=== PATIENT | female | born 1990 | race Caucasian/White ===

== ENCOUNTER 2023-02-18 06:41 | Emergency (ER) | payer SELFPAY ==
--- NOTE | ~2023-02-18 | CT_ITS ---
EXAMINATION: CT SOFT TISSUE NECK WITH CONTRAST CLINICAL INFORMATION: Enlargement of the right tonsil. Question peritonsillar abscess. COMPARISON: No relevant prior imaging. TECHNIQUE: Following the intravenous administration of 100 mL of Omnipaque 350 intravenous contrast, helical imaging was performed in the axial plane with generation of coronal and sagittal reformatted images. This CT examination was performed using dose optimization techniques as appropriate, variously including the following: *Automated exposure control *Adjustment of mA and/or kV according to patient size (this includes techniques or standardized protocols for targeted exams where dose is matched to indication/reason for exam; i.e. extremities or head) *Use of iterative reconstruction technique DLP: 724 mGy-cm FINDINGS: There is a peripherally enhancing 2.3 cm fluid collection within the right nasopharyngeal mucosal space consistent with a peritonsillar abscess best visualized on axial image 30 of 135 series 2. There is borderline symmetric enlargement of multiple cervical lymph nodes that are likely reactive in the setting of an abscess. No mediastinal or axillary adenopathy is visualized within the [id number] of this examination. Director Broadcast spaces are symmetric. The parotid and submandibular glands are normal. The tongue base and epiglottis are normal. Preepiglottic fat is preserved. Glottic and subglottic airways are widely patent. The thyroid gland is normal and the remainder of the visualized visceral soft tissues are normal. Lung apices are clear. The aortic arch apex is normal. Cervical carotid or vertebral arteries are patent. Internal jugular veins fill symmetrically. There is no acute osseous finding. No worrisome lytic or blastic osseous lesion. The skull base is intact. No mastoid or middle ear effusion. No active paranasal sinus disease. Limited visualization of the intracranial anatomy reveals no abnormal finding. CT/CT soft tissue neck w IV con IMPRESSION: There is a 2.3 cm right peritonsillar abscess. There are multiple reactive cervical lymph nodes, none of which demonstrate evidence of central suppuration. No evidence of septic thrombophlebitis.
[2023-02-18 07:15] VITALS: BP 116/81; PULSE 110; RESP 18; TEMP 36.9; O2SAT 97; BMI 42.9
[2023-02-18] MEDS: dexAMETHasone sod phosphate 10 MG/ML VIAL IVPUSH (08:11)
[2023-02-18] MEDS: 0.9 % Sodium Chloride 1,000 ML 999 ML IV (08:11)
[2023-02-18 08:12] LABS: MANUAL DIFF FLAG NO
[2023-02-18] MEDS: Ketorolac Tromethamine 15 MG/ML VIAL IVPUSH (08:13)
--- NOTE | 2023-02-18 08:13 | ED.GENADULT ---
HPI - General Adult General Chief complaint: General Medical Stated complaint: strep throat meds not working after urgent care Time Seen by Provider: 02/18/23 07:09 Source: patient Mode of arrival: ambulatory Limitations: no limitations History of Present Illness HPI narrative: 32-year-old female with no major medical problems presents with sore throat. Symptoms have been on and off for at least a month to month and a half. Most recently over the last 5-6 days she has had increasing throat pain. The pain is moderate to severe. Worse with swallowing. Feels like last. She had no fevers or chills. She has had some mild nausea but no vomiting. She has denies any other respiratory symptoms. Patient was treated previously with penicillin, steroids for possible strep throat. Symptoms seemed of gotten somewhat better but over the last few days have gotten significantly worse. Patient is also noted tonsillar enlargement. Related Data Previous Rx's Medication Instructions Recorded amoxicillin 875 mg-potassium 1 tab PO Q12H #20 tabs 02/18/23 clavulanate 125 mg tablet meloxicam 15 mg tablet 15 mg PO DAILY #20 tabs 02/18/23 Allergies Allergy/AdvReac Type Severity Reaction Status Date / Time No Known Allergies Allergy Verified 02/18/23 07:18 [No Known Allergies*] Review of Systems Review of Systems: CONSTITUTIONAL: Denies weight loss, fever and chills. HEENT: Denies changes in vision and hearing. RESPIRATORY: Denies SOB and cough. CV: Denies palpitations no CP. GI: Denies abdominal pain, nausea, vomiting and diarrhea. : Denies dysuria and urinary frequency. MSK: Denies myalgia and joint pain. SKIN: Denies rash and pruritus. NEUROLOGICAL: Denies headache and syncope. PSYCHIATRIC: Denies recent changes in mood. Denies anxiety and depression. All other ROS are negative unless in HPI COUNTS INCLUDE 234 BEDS AT THE [facility] Social History Social History Alcohol intake: current Alcohol intake frequency: holidays/special occasions only Smoked in Last 30 Days: Yes Use of substances other than those prescribed or required for medical reasons: Yes Substance Use Type: Marijuana Advance Directives: No Physical Exam ED Vital Signs: Vital Signs - 24 hr 02/18/23 07:15 Temperature 98.5 F Pulse Rate 110 H Respiratory Rate 18 Blood Pressure 116/81 Pulse Oximetry 97 Oxygen Delivery Method Room Air BMI result Body Mass Index 42.9 GEN: Well developed, no acute distress, alert, oriented HEENT: Normocephalic, atraumatic, normal external ears, nose appears normal, bilateral tonsillar enlargement, right greater than left with uvular deviation, no erythema or exudates Eyes: Normal to appearance Neck: Supple, no lymphadenopathy Respiratory: Talks in complete sentences, no respiratory distress, no wheezing or stridor Extremities: No clubbing cyanosis or edema Neurologic: No focal neurologic deficits, cranial nerves 2-12 intact, gait normal Skin: No rash Course Course Course Narrative: 32-year-old female with a peritonsillar abscess. Incision and drainage was performed in the emergency department. She tolerated the procedure well. Approximately 1.5 mL of purulent material was drained from the abscess. There are no immediate adverse reactions or complications. Bleeding is controlled. She received a dose Unasyn in the emergency department. She reduce the receive dexamethasone as well. Patient will continue with Augmentin and meloxicam as an outpatient. Patient will be referred to ENT. Patient reports having had at least 3-4 episodes of pharyngitis within the last 12 months. Additionally, she reports snoring with possible apneic episodes. With consult kissing tonsils, frequent infections, patient may be an appropriate candidate for tonsillectomy. Medications Administered Discontinued Medications Generic Name Dose Route Start Last Admin Trade Name Freq PRN Reason Stop Dose Admin Dexamethasone Sodium Phosphate 10 mg 02/18/23 07:48 02/18/23 08:11 Dexamethasone Sod Phosphate 10 Mg/Ml Vial IVPUSH 02/18/23 07:49 10 mg ONCE ONE Administration Sodium Chloride 1,000 mls @ 999 mls/hr 02/18/23 08:00 02/18/23 09:50 Ns IV 02/18/23 09:00 Infused .Q1H1M MERYL Infusion Iohexol 60 ml 02/18/23 08:45 02/18/23 08:46 Iohexol 350 Mg/Ml 100 Ml Infus..Btl IV 02/18/23 08:46 60 ml ONCE ONE Administration Ketorolac Tromethamine 15 mg 02/18/23 07:48 02/18/23 08:13 Ketorolac Tromethamine 15 Mg/Ml Vial IVPUSH 02/18/23 07:49 15 mg ONCE ONE Administration Lorazepam 1 mg 02/18/23 09:39 02/18/23 09:48 Lorazepam 2 Mg/Ml Vial IVPUSH 02/18/23 09:40 1 mg ONCE ONE Administration Procedures Abscess I/D Site: other (Peritonsillar) Side (if applicable): right Sedation/analgesia: other (Ativan 1 mg) Local Anesthetic: lidocaine 1% Amount of anesthesia used (mL): 2 Technique: needle aspiration Amount of fluid expressed (mL): 1.5 Sent for culture/gram staining?: No Irrigation: No Packing used?: none Medical Decision Making Medical Decision Making [facility] Narrative: Patient presents with sore throat. Differential diagnosis includes strep throat, viral pharyngitis, other bacterial pharyngitis, peritonsillar abscess, kissing tonsils, viral infection. Plan will be to obtain a CT scan of the neck to rule out peritonsillar abscess. If this is the case, she will likely need this to be drained either by myself or by ENT. Would consider antibiotic treatment. However in the meantime, will treat with dexamethasone and Toradol. Patient may require transfer to higher level of care where ENT is available. Differential Diagnosis Differential Diagnoses: The differential diagnosis associated with the presentation includes Peritonsillar abscess Admission/Observation Consideration of admission/observation: Escalation of care including admission/observation considered Lab Data [facility] Lab Attestation statement: I reviewed the patient's lab results. 02/18/23 08:07 02/18/23 08:07 Labs: Lab Results 02/18/23 02/18/23 02/18/23 Range/Units 08:07 08:07 08:07 WBC 16.1 H (4.8-10.8) X10*3/uL RBC 5.07 (4.20-5.50) X10*6/uL Hgb 14.4 (12.0-16.0) g/dl Hct 44.3 (37.0-47.0) % MCV 87.4 (80.0-98.0) fL MCH 28.4 (27.0-33.0) pg MCHC 32.5 (31.0-35.0) g/dl RDW 13.3 (11.0-16.0) % Plt Count 353 (160-400) X10*3/uL MPV 10.4 (9.4-12.3) fL Immature Gran % (Auto) 0.4 (0.0-0.4) % Neut % (Auto) 72.0 (45-73) % Lymph % (Auto) 20.7 (20-40) % Fleming % (Auto) 6.2 (2-11) % Eos % (Auto) 0.5 (0-4) % Baso % (Auto) 0.2 (0-2) % Lymph # (Auto) 3.3 (1.2-4.9) X10*3/uL Fleming # (Auto) 1.0 (0.1-1.2) X10*3/uL Eos # (Auto) 0.1 (0.0-0.4) X10*3/uL Baso # (Auto) 0.0 (0.0-0.2) X10*3/uL Abs Immat Gran (auto) 0.07 H (0.00-0.03) X10*3/uL Absolute Neuts (auto) 11.6 H (2.0-8.3) x10*3/uL Absolute Nucleated RBC 0.000 (0.0-0.012) X10*3/uL Nucleated RBC % (auto) 0.0 (0.0-0.2) /100WBC Sodium 141 (135-145) mmol/L Potassium 3.7 (3.3-5.1) mmol/L Chloride 105 (96-108) mmol/L Carbon Dioxide 26 (22-29) mmol/L Anion Gap 14 (12-20) BUN 13 (9-16) mg/dL Creatinine 0.82 (0.5-1.4) mg/dL Estim Creat Clear Calc 123.8 Estimated GFR > 60 Random Glucose 94 (60-115) mg/dL Calcium 9.9 (8.4-10.2) mg/dL S. pyogenes GrpA SONIA Negative (Negative) Independent Interpretation I performed an independent interpretation of an: CT Scan Radiology Impression Discussion of test interpretation with radiology: I have reviewed the radiologist's reading. Radiologist Impression: CT/CT soft tissue neck w IV con IMPRESSION: There is a 2.3 cm right peritonsillar abscess. There are multiple reactive cervical lymph nodes, none of which demonstrate evidence of central suppuration. No evidence of septic thrombophlebitis. ? Dictated By: Denzel Sloan MD Signed By: <Electronically signed by Denzel Sloan MD in OV> 02/18/23 0904 Prescription Management I considered prescription management with: Pain Medication and Antibiotic Discharge Plan Discharge Clinical Impression: Tonsillar enlargement, Abscess, peritonsillar Patient Disposition: Home, Self-Care Instructions: Tonsillitis (ED), Tonsillectomy (DC), Peritonsillar Abscess (ED), Abscess Incision and Drainage (DC) Prescriptions: New amoxicillin-pot clavulanate 875-125 mg tablet 1 tab PO Q12H Qty: 20 0RF meloxicam 15 mg tablet 15 mg PO DAILY Qty: 20 0RF Referrals: Suhail Leung [Physician] - 2 days
[2023-02-18 08:26] LABS: Anion Gap 14 (12-20); Blood Urea Nitrogen 13 mg/dL (9-16); Calcium 9.9 mg/dL (8.4-10.2); Carbon Dioxide 26 mmol/L (22-29); Chloride 105 mmol/L (96-108); Creatinine Clr Calc Pharmacy 123.8; Estimated Glomerular Filt Rate > 60; Glucose Random 94 mg/dL (60-115); IDNOW Serial# 08D9AD1C; Potassium 3.7 mmol/L (3.3-5.1); Sodium 141 mmol/L (135-145); Strep A Nucleic Acid Negative (Negative)
[2023-02-18 08:27] LABS: Basophils Percent Auto 0.2 % (0-2); Eosinophils Absolute Auto 0.1 X10*3/uL (0.0-0.4); Eosinophils Percent Auto 0.5 % (0-4); Hematocrit 44.3 % (37.0-47.0); Hemoglobin 14.4 g/dl (12.0-16.0); Imm Gran Abs Auto 0.07 X10*3/uL (0.00-0.03); Imm Gran Pct Auto 0.4 % (0.0-0.4); Lymphocytes Absolute Auto 3.3 X10*3/uL (1.2-4.9); Lymphocytes Percent Auto 20.7 % (20-40); Mean Corpuscular HGB Conc 32.5 g/dl (31.0-35.0); Mean Corpuscular Hemoglobin 28.4 pg (27.0-33.0); Mean Corpuscular Volume 87.4 fL (80.0-98.0); Mean Platelet Volume 10.4 fL (9.4-12.3); Monocytes Percent Auto 6.2 % (2-11); Neutrophils Absolute Auto 11.6 x10*3/uL (2.0-8.3); Platelet Count 353 X10*3/uL (160-400); Red Blood Count 5.07 X10*6/uL (4.20-5.50); Red Cell Distribution Width 13.3 % (11.0-16.0); White Blood Count 16.1 X10*3/uL (4.8-10.8)
--- NOTE | 2023-02-18 08:35 | PC.NURSE ---
swollen tonsils and sore throat, managing secretions and able to swallow some food but mainly just drinking fluids, medicated as orfdered, skin wpd
[2023-02-18] MEDS: iohexoL 350 MG/ML 100 ML INFUS..BTL 60 ML IV (08:46)
--- NOTE | 2023-02-18 09:10 | PC.NURSE ---
pt pain reduced to 5, speaking in full sentences, managing secretions, IV infusing, will ctm
[2023-02-18] MEDS: LORazepam 2 MG/ML VIAL 1 MG IVPUSH (09:48)
[2023-02-18] MEDS: Ampicillin Sodium/Sulbactam Na 3 GM in 0.9 % Sodium Chloride 100 ML IV (10:34)
== END 2023-02-18 11:10 | disposition home or self-care (01) ==
PROVIDERS: Emergency Provider Emergency Medicine
DX: J36 Peritonsillar abscess (principal); J35.1 Hypertrophy of tonsils; F12.90 Cannabis use, unspecified, uncomplicated
CPT/HCPCS: 36415; 42700; 70491; 80048; 85025; 87651; 96361; 96365; 96375; 99284; J0295; J1100; J1885; J2060; Q9967

== ENCOUNTER 2025-04-12 09:29 | Emergency (ER) | payer OTHER, SELFPAY ==
--- NOTE | ~2025-04-12 | US_ITS ---
EXAMINATION: US FIRST TRIMESTER OB HISTORY: +HCG >15,000 R/O ectopic TECHNIQUE: Endovaginal scanning was performed. FINDINGS: There is a single, live intrauterine . AUA = 6 weeks 5 days CHELSIE(AUA) = 12/01/2025 LMP = unknown CRL = 0.75 cm Yolk Sac: seen FHR = 133 bpm Right ovary: The right ovary measures 2.7 x 1.4 x 1.9 cm and is unremarkable. Left ovary: The left ovary measures 3.3 x 2.1 x 2.5 cm and is unremarkable. Cul-de-sac: No free fluid US/US OB <= 14 weeks fetus IMPRESSION: Single, live intrauterine of estimated gestational age 6 weeks, 5 days. Electronically signed by: Denzel Bonilla MD 04/12/2025 01:59 PM EDT
--- NOTE | 2025-04-12 09:31 | ECG_ITS ---
Test Reason : IRREG HEART BEAT Blood Pressure : */* mmHG Vent. Rate : 96 BPM Atrial Rate : 96 BPM P-R Int : 132 ms QRS Dur : 58 ms QT Int : 328 ms P-R-T Axes : 39 11 27 degrees QTcB Int : 414 ms Normal sinus rhythm with sinus arrhythmia Cannot rule out Anterior infarct , age undetermined ; could also be from body habitus and lead placement Abnormal ECG No previous ECGs available Referred By: Generic ED Physician Electronically Signed By: LEONCIO HARRIS
[2025-04-12 09:42] VITALS: BP 118/72; PULSE 103; RESP 22; TEMP 36.9; O2SAT 97; BMI 40.1
--- NOTE | 2025-04-12 09:42 | ED.GENADULT ---
HPI - General Adult General Chief complaint: Arrhythmia/Palpitations Stated complaint: irregular heart beat , sob, light headed Time Seen by Provider: 04/12/25 09:40 Source: patient, RN notes reviewed and old records reviewed Mode of arrival: ambulatory Limitations: no limitations History of Present Illness ED Provider: ALEXA Roa HPI narrative: 34-year-old female with medical history of anxiety presents to the ED due to 3 days of heart palpitations, light headedness, and chest pain. Patient states these episodes are usually intermittent and last for approximately 1 day before resolving. Patient states this episode has been constant since Thursday which worried her. She states chest pain is more like a heaviness in the center of her chest that does not radiate anywhere. Patient reports showering this morning and feeling very SOB during her shower which is untypical for her. Additionally, she states she has been experiencing intermittent nausea without vomiting, and is nauseous upon arrival to ED. Patient states she used to be on metoprolol for fast heart beat but cannot remember specifically why this medication was prescribed to her, she has been off this medication for approximately 10 years and has not been seen by primary care doctor during this time. Related Data Previous Rx's ?Medication ?Instructions ?Recorded amoxicillin 875 mg-potassium 1 tab PO Q12H #20 tabs 02/18/23 clavulanate 125 mg tablet meloxicam 15 mg tablet 15 mg PO DAILY #20 tabs 02/18/23 Allergies Allergy/AdvReac Type Severity Reaction Status Date / Time No Known Allergies (No Known Allergy Verified 04/12/25 09:42 Allergies*) Review of Systems Review of Systems: CONST: Negative for fever, body aches and chills. HENT: Negative for neck pain/stiffness, headache, congestion, sore throat, swelling. EYES: Negative for discharge/pain or vision changes. RESP: Negative for cough/hemoptysis and shortness of breath. CV: Negative difficulty breathing. POS SOB, palpitations ABD: Negative pain, nausea, vomiting. : Negative increase frequency, dysuria, blood in urine or stool. MUSC: Negative for muscle aches, edema. SKIN: Negative rash, lesions/sores. NEURO: Negative headache, dizziness, weakness. [facility] Past Medical History Attestation statement: The following information was validated with the patient. Source: old records reviewed and nursing notes reviewed Social History Social History Alcohol intake: current Alcohol intake frequency: holidays/special occasions only Substance Use Type: Marijuana Advance Directives: No Advance Directives Information Provided: No Physical Exam ED Vital Signs: Vital Signs - 24 hr 04/12/25 09:42 04/12/25 11:13 04/12/25 12:07 Temperature 98.4 F 98.5 F 97.2 F Pulse Rate 103 H 85 68 Respiratory Rate 22 H 12 15 Blood Pressure 118/72 104/65 111/59 L Pulse Oximetry 97 95 100 Oxygen Delivery Method Room Air Room Air Room Air 04/12/25 14:12 Temperature Pulse Rate 86 Respiratory Rate 14 Blood Pressure 116/66 Pulse Oximetry 99 Oxygen Delivery Method Room Air BMI result Body Mass Index 40.1 GENERAL APPEARANCE: ?AxOx4, generally well-appearing, no acute distress. HEENT: ?NC, AT. MMM. EOMI, clear conjunctiva, oropharynx clear. NECK: ?Supple without lymphadenopathy.? No stiffness or restricted ROM. HEART:? Normal rate and regular rhythm, normal S1/S2, no m/r/g LUNGS:? CTAB, moving air well. No crackles or wheezes are heard. ABDOMEN: ?Soft, non distented, no rigidity or guarding, mild suprapubic tenderness BACK: No CVAT, no obvious deformity. EXTREMITIES: ?Without cyanosis, clubbing or edema. NEUROLOGICAL: ?Grossly nonfocal. Alert and oriented, moving all 4 extremities. Observed to ambulate with normal gait. Skin: ?Warm and dry without any rash. Medications Administered Discontinued Medications Generic Name Dose Route Start Last Admin Trade Name Freq PRN Reason Stop Dose Admin Lactated Ringer's 1,000 mls @ 999 mls/hr 04/12/25 11:15 04/12/25 12:38 Lr IV 04/12/25 12:15 Infused .Q1H1M ONE Infusion Ondansetron HCl 4 mg 04/12/25 11:15 04/12/25 11:39 Ondansetron Hcl 4 Mg/2 Ml Vial IVPUSH 04/12/25 11:16 4 mg ONCE ONE Administration Medical Decision Making Medical Decision Making MDM Narrative: 34-year-old female with medical history of anxiety presents to the ED for 3 days of consistent palpitations, SOB and intermittent nausea. Patient reports a chest pressure in the center of her chest that does not radiate. She reports showering this morning worsening her SOB. Patient has a 5 year tobacco history smoking 1 pack per week, and smoking marijuana daily. Patient has a nexplanon in place for the past 7+ years, she is unsure exactly when it was placed. Patient does not have AIR CONDITIONING INSTALLER SUPERVISOR/PCP at this time. VS on initial observation-BP 118/72, pulse rate of 103, respiratory rate of 22, afebrile with oral temp of 98.4?, O2 saturation 97% on room air. Plan: Labs, UA, viral serology, EKG, Course Labs revealed leukocytosis of 11.3, no evidence of anemia, no electrolyte abnormality. D- dimer negative < 150- PE less likely EKG reveals normal sinus rhythm with sinus arrhythmia, no ST-elevation/depression, prolonged QT, initial troponin undetectable at < 2.7, without chest pain. US OB reveals a single live intrauterine of estimated gestational age 6 weeks, 5 days, beta HCG <15.000- less likely ectopic . Patient is looking for medication . [facility] she does not have AIR CONDITIONING INSTALLER SUPERVISOR/PCP at this time. Patient has support with her significant other at the bedside who is in agreement with the plan. Labs today without evidence of PE, emergent cardiac processes. I counseled patient that she needs to follow up with [facility] for possible Holter monitor and further evaluation of palpitations and strict return precautions. Patient is in agreement with the plan. Vital signs on reobservation-BP 116/66, pulse rate of 86, respiratory rate of 14, afebrile with oral temp of 98.1?, O2 saturation 99% on room air. Differential Diagnosis Differential Diagnoses: The differential diagnosis associated with the presentation includes Dysrhythmia Pulmonary embolism Viral illness COVID Flu Atypical chest pain Anxiety Admission/Observation Consideration of admission/observation: Escalation of care including admission/observation considered Lab Data MDM Lab Attestation statement: I reviewed the patient's lab results. 04/12/25 11:04 04/12/25 11:03 Labs: Lab Results 04/12/25 04/12/25 04/12/25 Range/Units 11:03 11:04 11:35 WBC 11.3 H (4.8-10.8) X10*3/uL RBC 4.28 (4.20-5.50) X10*6/uL Hgb 12.9 (12.0-16.0) g/dl Hct 38.1 (37.0-47.0) % MCV 89.0 (80.0-98.0) fL MCH 30.1 (27.0-33.0) pg MCHC 33.9 (31.0-35.0) g/dl RDW 13.1 (11.0-16.0) % Plt Count 262 D (160-400) X10*3/uL MPV 10.4 (9.4-12.3) fL Immature Gran % (Auto) 0.4 (0.0-0.4) % Neut % (Auto) 75.3 H (45-73) % Lymph % (Auto) 18.5 L (20-40) % King % (Auto) 5.1 (2-11) % Eos % (Auto) 0.5 (0-4) % Baso % (Auto) 0.2 (0-2) % Lymph # (Auto) 2.1 (1.2-4.9) X10*3/uL King # (Auto) 0.6 (0.1-1.2) X10*3/uL Eos # (Auto) 0.1 (0.0-0.4) X10*3/uL Baso # (Auto) 0.0 (0.0-0.2) X10*3/uL Abs Immat Gran (auto) 0.04 H (0.00-0.03) X10*3/uL Absolute Neuts (auto) 8.5 H (2.0-8.3) x10*3/uL Absolute Nucleated RBC 0.000 (0.0-0.012) X10*3/uL Nucleated RBC % (auto) 0.0 (0.0-0.2) /100WBC D-Dimer High Sensitivty < 150 NG/ML Sodium 138 (135-145) mmol/L Potassium 4.1 (3.3-5.1) mmol/L Chloride 107 (96-108) mmol/L Carbon Dioxide 26 (22-29) mmol/L Anion Gap 9 L (12-20) BUN 7 L (9-16) mg/dL Creatinine 0.69 (0.5-1.4) mg/dL Estim Creat Clear Calc 139.0 Estimated GFR > 60 Random Glucose 90 (60-115) mg/dL Calcium 9.3 D (8.4-10.2) mg/dL Magnesium 2.0 (1.6-2.6) mg/dL Total Bilirubin 0.6 (0.0-1.0) mg/dL AST 16 (5-31) U/L ALT 17 (0-31) U/L Alkaline Phosphatase 60 (39-117) U/L Troponin I High Sens < 2.7 (<3.5-17.0) ng/L Total Protein 7.4 (6.5-8.0) g/dL Albumin 4.4 (3.5-5.0) g/dL Beta HCG, Quant > 64185 mIU/mL COVID-19 (HAY) Negative (Negative) COVID-19 Clin Com See Note Influenza Type A (SONIA) Negative (Negative) Influenza Type B (SONIA) Negative (Negative) Influenza A & B Note See Note Independent Interpretation I performed an independent interpretation of an: EKG and Ultrasound Interpretation: EKG reveals normal sinus rhythm with sinus arrhythmia, no ST-elevation/depression, T-wave abnormality, prolonged QT Vent. Rate : 108 BPM Atrial Rate : 108 BPM P-R Int : 164 ms QRS Dur : 94 ms QT Int : 338 ms P-R-T Axes : 15 36 -5 degrees QTcB Int : 452 ms Sinus tachycardia Cannot rule out Anterior infarct , age undetermined Abnormal ECG No previous ECGs available I personally interpreted the OB ultrasound which reveals a single intrauterine , I agree with the radiologist's interpretation Radiology Impression Discussion of test interpretation with radiology: I have reviewed the radiologist's reading. Radiologist Impression: U/S OB FINDINGS: There is a single, live intrauterine . AUA = 6 weeks 5 days CHELSIE(AUA) = 12/01/2025 LMP = unknown CRL = 0.75 cm Yolk Sac: seen FHR = 133 bpm Right ovary: The right ovary measures 2.7 x 1.4 x 1.9 cm and is unremarkable. Left ovary: The left ovary measures 3.3 x 2.1 x 2.5 cm and is unremarkable. Cul-de-sac: No free fluid US/US OB <= 14 weeks fetus IMPRESSION: Single, live intrauterine of estimated gestational age 6 weeks, 5 days. Electronically signed by: Denzel Bonilla MD 04/12/2025 01:59 PM EDT Dictated By: Denzel Bonilla MD Signed By: <Electronically signed by Denzel Bonilla MD in OV> 04/12/25 4016 External Record Review External record reviewed: Inpatient record, Office record and Outpatient record Chronic Conditions Patient?s care impacted by: Other (Anxiety, ) Discharge Plan Discharge Clinical Impression: , Palpitations Patient Disposition: Home, Self-Care Additional Instructions: You were evaluated in the department today for palpitations, shortness of breath. Your EKG revealed a normal sinus rhythm with a sinus arrhythmia, this is nonemergent, your initial troponin which is an enzyme that the heart gives off while under stress or damage was negative today at <2.7. I was concerned for possible pulmonary embolism, your D-dimer which is a lab value that detects possible clots within the body was negative at <150. Your beta hCG was positive today at <15,000 indicating . Your ultrasound today revealed an approximately 6 week, 5-day-old single intrauterine . I have placed referrals to you for primary care doctors, and Cardiology. I recommend you follow up with Cardiology for further evaluation of your palpitations, you may need Holter monitor testing for a better picture of what is going on. Please call these offices to establish care as they will not call you. [facility] steps in your decision. Please return to the emergency department if you experience fevers over 100.4? that are not controlled by Motrin/Tylenol, abdominal pain, vaginal discharge, vaginal bleeding, vaginal spotting, worsening palpitations, chest pain, shortness of breath or any new/worsening/concerning symptoms. Prescriptions: No Action amoxicillin-pot clavulanate 875-125 mg tablet 1 tab PO Q12H Qty: 20 0RF meloxicam 15 mg tablet 15 mg PO DAILY Qty: 20 0RF Referrals: Liss Barnes MD [Physician, Medical] Marisela Barboza PA [Physician Black Powder Glazing Operator, Primary Care] Michael Cohen MD [Physician, Internal Medicine] [facility] [Provider Group, Family Practice] Dayna Álvarez NP [Nurse Practitioner, Family Practice] [facility] [Provider Group, Family Practice] [facility] [Provider Group] Print Language: Bulgarian
[2025-04-12 11:07] LABS: MANUAL DIFF FLAG NO
[2025-04-12 11:10] LABS: Hematocrit 38.1 % (37.0-47.0); Hemoglobin 12.9 g/dl (12.0-16.0); Imm Gran Abs Auto 0.04 X10*3/uL (0.00-0.03); Imm Gran Pct Auto 0.4 % (0.0-0.4); Lymphocytes Absolute Auto 2.1 X10*3/uL (1.2-4.9); Mean Corpuscular HGB Conc 33.9 g/dl (31.0-35.0); Mean Corpuscular Hemoglobin 30.1 pg (27.0-33.0); Mean Corpuscular Volume 89.0 fL (80.0-98.0); NRBC Abs Auto 0.000 X10*3/uL (0.0-0.012); NRBC Pct Auto 0.0 /100WBC (0.0-0.2); Platelet Count 262 X10*3/uL (160-400); Red Blood Count 4.28 X10*6/uL (4.20-5.50); White Blood Count 11.3 X10*3/uL (4.8-10.8)
[2025-04-12 11:13] VITALS: BP 104/65; PULSE 85; RESP 12; TEMP 36.9; O2SAT 95
[2025-04-12 11:28] LABS: COVID-19 Test Negative (Negative); IDNOW Serial# 152EDE1D; IDNOW Serial# 16C4AD1C; Influenza B2 Negative (Negative)
[2025-04-12 11:35] LABS: Alanine Aminotransferase 17 U/L (0-31); Albumin Level 4.4 g/dL (3.5-5.0); Alkaline Phosphatase 60 U/L (39-117); Anion Gap 9 (12-20); Aspartate Amino Transferase 16 U/L (5-31); Blood Urea Nitrogen 7 mg/dL (9-16); Calcium 9.3 mg/dL (8.4-10.2); Carbon Dioxide 26 mmol/L (22-29); Chloride 107 mmol/L (96-108); Creatinine Clr Calc Pharmacy 139.0; Estimated Glomerular Filt Rate > 60; Magnesium 2.0 mg/dL (1.6-2.6); Potassium 4.1 mmol/L (3.3-5.1); Sodium 138 mmol/L (135-145); Total Protein 7.4 g/dL (6.5-8.0); Troponin-I High Sensitivity < 2.7 ng/L (<3.5-17.0)
[2025-04-12] MEDS: Lactated Ringers 1,000 ML 999 ML IV (11:36)
[2025-04-12 12:06] LABS: D Dimer High Sensitivity < 150 NG/ML
[2025-04-12 12:07] VITALS: BP 111/59; PULSE 68; RESP 15; TEMP 36.2; O2SAT 100
[2025-04-12 14:12] VITALS: BP 116/66; PULSE 86; RESP 14; TEMP 36.7; O2SAT 99
[2025-04-12 15:40] VITALS: BP 116/66; PULSE 86; RESP 14; TEMP 36.7; O2SAT 99
== END 2025-04-12 15:46 | disposition home or self-care (01) ==
PROVIDERS: Emergency Provider Emergency Medicine
DX: O99.411 Diseases of the circulatory system complicating pregnancy, first trimester (principal); Z3A.01 Less than 8 weeks gestation of pregnancy; I49.8 Other specified cardiac arrhythmias; R42 Dizziness and giddiness; R11.0 Nausea; R06.02 Shortness of breath; R07.89 Other chest pain; Z87.891 Personal history of nicotine dependence; Z11.52 Encounter for screening for COVID-19; Z79.899 Other long term (current) drug therapy
CPT/HCPCS: 36415; 76801; 80053; 83735; 84484; 84702; 85025; 85379; 87502; 87635; 93005; 96361; 96374; 99284; J2405; J7120

== ENCOUNTER → 2025-04-12 09:31 | Outpatient (BNV) | payer OTHER, SELFPAY | PROVIDERS: Emergency Provider Emergency Medicine; Visit Provider Internal Medicine | DX: R94.31 Abnormal electrocardiogram [ECG] [EKG] (principal); R00.2 Palpitations | CPT/HCPCS: 93010 ==

== ENCOUNTER → 2025-04-12 12:11 | Outpatient (BNV) | payer OTHER, SELFPAY | PROVIDERS: Emergency Provider Emergency Medicine; Visit Provider Radiology Diagnostic Radiology | DX: O09.11 Supervision of pregnancy with history of ectopic pregnancy, first trimester (principal); Z33.1 Pregnant state, incidental | CPT/HCPCS: 76801 ==

== ENCOUNTER 2025-05-29 04:08 | Inpatient (IN) | payer OTHER, SELFPAY ==
[2025-05-29] VITALS (14 sets, daily range): BP systolic 95–144; BP diastolic 48–113; PULSE 60–102; RESP 13–20; TEMP 36.1–36.9; O2SAT 95–100; BMI 42.9; BMI 42.5
--- NOTE | ~2025-05-29 | US_ITS ---
EXAMINATION: US ABDOMEN LIMITED HISTORY: RUQ Pain TECHNIQUE: Real-time grayscale ultrasound imaging of the gallbladder was performed and images were reviewed. COMPARISON: Correlation is made with a CT of the abdomen with contrast dated 05/29/2025. FINDINGS: There is cholelithiasis. There may be a calculus in the gallbladder neck. The gallbladder wall is thickened measuring up to 6 mm in thickness. There is no pericholecystic fluid. There is no sonographic Jones sign. The common bile duct is normal in caliber measuring 2 mm. US/US abdomen limited IMPRESSION: Cholelithiasis with a possible calculus in the gallbladder neck. Gallbladder wall thickening without a positive sonographic Jones sign. If there is clinical concern for acute cholecystitis, HIDA scan could be performed. Electronically signed by: Denzel Bonilla MD 05/29/2025 08:13 AM NICHOLAS RP
--- NOTE | ~2025-05-29 | CT_ITS ---
CLINICAL HISTORY: GB biliary colic? we cant get US overnight CT abdomen and pelvis with contrast Comparison: None provided Findings: The lung bases are clear. The liver, spleen, adrenal glands and pancreas are normal. The gallbladder is mildly distended without radiopaque calculus. No pericholecystic fluid. The kidneys, ureters and bladder are normal. Normal appendix. No bowel obstruction or free air. Small left adnexal cysts. Normal uterus. No acute osseous finding. Impression: No definite acute process. Nonspecific mild distention of the gallbladder without radiopaque calculus or pericholecystic fluid. This document has been electronically signed by: Arthur Simon MD on 05/29/2025 07:49:01
--- NOTE | 2025-05-29 04:16 | ECG_ITS ---
Test Reason : ABDOMINAL PAIN Blood Pressure : */* mmHG Vent. Rate : 79 BPM Atrial Rate : 79 BPM P-R Int : 148 ms QRS Dur : 80 ms QT Int : 392 ms P-R-T Axes : 52 10 38 degrees QTcB Int : 449 ms Normal sinus rhythm with sinus arrhythmia Cannot rule out Anterior infarct (cited on or before 12-Apr-2025) Abnormal ECG When compared with ECG of 12-Apr-2025 09:36, ST no longer depressed in Anterior leads Referred By: Generic ED Physician Electronically Signed By: Chano Navarro
[2025-05-29 04:40] LABS: MANUAL DIFF FLAG NO
[2025-05-29 04:41] LABS: Hematocrit 38.7 % (37.0-47.0); Hemoglobin 12.7 g/dl (12.0-16.0); Imm Gran Abs Auto 0.04 X10*3/uL (0.00-0.03); Imm Gran Pct Auto 0.3 % (0.0-0.4); Lymphocytes Absolute Auto 2.4 X10*3/uL (1.2-4.9); Mean Corpuscular HGB Conc 32.8 g/dl (31.0-35.0); Mean Corpuscular Hemoglobin 29.6 pg (27.0-33.0); Mean Corpuscular Volume 90.2 fL (80.0-98.0); NRBC Abs Auto 0.000 X10*3/uL (0.0-0.012); NRBC Pct Auto 0.0 /100WBC (0.0-0.2); Platelet Count 317 X10*3/uL (160-400); Red Blood Count 4.29 X10*6/uL (4.20-5.50); White Blood Count 14.8 X10*3/uL (4.8-10.8)
[2025-05-29] MEDS: Sucralfate Oral Suspension 1 GM/10 ML ORAL.SUSP PO (04:43)
[2025-05-29] MEDS: diazePAM 10 MG/2 ML CARTRIDGE 5 MG IVPUSH (04:53)
[2025-05-29 05:00] LABS: Alanine Aminotransferase 29 U/L (0-31); Albumin Level 4.5 g/dL (3.5-5.0); Alkaline Phosphatase 62 U/L (39-117); Anion Gap 12 (12-20); Aspartate Amino Transferase 21 U/L (5-31); Blood Urea Nitrogen 14 mg/dL (9-16); Calcium 8.9 mg/dL (8.4-10.2); Carbon Dioxide 24 mmol/L (22-29); Chloride 105 mmol/L (96-108); Creatinine Clr Calc Pharmacy 136.5; Estimated Glomerular Filt Rate > 60; Lipase 19 U/L (8-78); Magnesium 1.9 mg/dL (1.6-2.6); Potassium 3.4 mmol/L (3.3-5.1); Sodium 138 mmol/L (135-145); Total Protein 7.4 g/dL (6.5-8.0)
[2025-05-29 05:04] LABS: COVID-19 Test Negative (Negative); IDNOW Serial# 55D5AD1C; IDNOW Serial# 58CA691E; Influenza B2 Negative (Negative)
--- NOTE | 2025-05-29 05:18 | ED.GENADULT ---
HPI - General Adult General Chief complaint: Abdominal Pain Stated complaint: pain in the rib cage Time Seen by Provider: 05/29/25 04:16 Source: patient Limitations: no limitations History of Present Illness ED Provider: Juanita Keller PA-C HPI narrative: 34-year-old female with a history of obesity, presents with upper abdominal discomfort x2 hours. Patient states she has had intermittent symptoms of upper abdominal discomfort for unclear duration of time. Overnight, they acutely worsen. The pain is severe, nonradiating, is worst epigastric and hypogastric region. Unable to describe the nature of her symptoms. Associated nausea at times. Denies postprandial pain or nausea. Denies fever or diarrhea. No chest pain no recent cough or cold symptoms. Related Data Home Medications ?Medication ?Instructions ?Recorded ?Confirmed levonorgestrel-ethinyl estradiol 1 tab PO DAILY 05/29/25 05/29/25 0.1 mg-20 mcg tablet (Vienva) Previous Rx's ?Medication ?Instructions ?Recorded oxycodone 5 mg tablet 5 mg PO Q4H PRN pain (scale score 05/29/25 7-10) #24 tabs Allergies Allergy/AdvReac Type Severity Reaction Status Date / Time No Known Allergies (No Known Allergy Verified 05/29/25 04:15 Allergies*) Review of Systems Review of Systems: Yes all other systems are reviewed and are negative Constitutional: Constitutional: Denies fatigue and Denies fever(s) Cardiovascular: Cardiovascular: Denies chest pain and Denies dyspnea Respiratory: Respiratory: Denies cough and Denies dyspnea Gastrointestinal: Gastrointestinal: Reports abdominal pain, Denies diarrhea, Reports nausea and Denies vomiting Endocrine: Endocrine: Denies fatigue PMFSH Past Medical History Attestation statement: The following information was validated with the patient. Social History Social History Household Members: None Housing: Apartment Do you presently have visiting nurse or other home services: No Alcohol intake: current Alcohol intake frequency: holidays/special occasions only Patient Tobacco Use Status: Current everyday Tobacco user Tobacco use type: Cigarette Cigarettes Per Day: 2 Smoked in Last 30 Days: Yes e-Cigarette/Vaping Use: Currently Using Frequency of e-Cigarette/Vaping Use: Daily. Patient Interested in Nicotine Replacement: Yes Patient Given Instructions on How to Stop Smoking: No (Declined.) Use of substances other than those prescribed or required for medical reasons: Yes Substance Use Type: Marijuana Substance Use Frequency: Daily Currently Displaying Signs/Symptoms of Drug Intoxication Withdrawal: No Have you been hit, kicked, punched, or otherwise hurt by someone within the past year? If so, by whom?: No Do you feel safe in your current relationship?: No Current Relationship Is there a partner from a previous relationship who is making you feel unsafe now?: No Are you made to feel afraid or neglected: No Are you DNR?: No Advance Directives: No Advance Directives Information Provided: No Do you have a plan to hurt others: No Plan Recently lost weight without trying: No Eating poorly because of decreased appetite: No Nutrition Risks: No Nutritional Risk Patient : No : No Poor oral hygiene: No Physical Exam ED Vital Signs: Vital Signs - 24 hr 05/29/25 07:42 Temperature 98.0 F Pulse Rate 91 Respiratory Rate 16 Blood Pressure 101/62 Pulse Oximetry 97 Oxygen Delivery Method Room Air BMI result Body Mass Index 42.9 Const Other: Alert, anxious and tearful Orientation/consciousness: patient oriented x3 Resp Effort & Inspection: normal respiratory effort Cardio Other: Normal peripheral perfusion GI Other: Abdomen is soft, obese, moderate tenderness epigastric and right upper quadrant with a mild involuntary guarding, Skin Other: Warm dry no rash Neuro General: patient oriented x3, gait normal, no focal motor deficits and CN's II-XI intact bilaterally Psych Other: Cooperative Course Course Course Narrative: CT pending at the time of sign-out, sending out to Dr. Braun 821am infection suspected based off labs and US - started on IV zosyn, Dr. Larson to come see patient, given IV toradol Medications Administered Generic Name Dose Route Start Last Admin Trade Name Freq PRN Reason Stop Dose Admin Acetaminophen 1,000 mg in 100 mls @ 400 mls/hr 05/29/25 09:22 05/29/25 21:53 Ofirmev IV Infused Q6H PRN Infusion Pain, Mild (Pain Scale 1-3) Piperacillin Sod/Tazobactam 50 mls @ 100 mls/hr 05/29/25 15:00 05/30/25 02:50 Sod 3.375 gm/ Sodium Chloride IV Infused Q6H MERYL Infusion Discontinued Medications Generic Name Dose Route Start Last Admin Trade Name Freq PRN Reason Stop Dose Admin Diazepam 5 mg 05/29/25 04:44 05/29/25 04:53 Diazepam 10 Mg/2 Ml Cartridge IVPUSH 05/29/25 04:45 5 mg STAT STA Administration Lactated Ringer's 1,000 mls @ 999 mls/hr 05/29/25 08:18 05/29/25 09:55 Lr IV 05/29/25 09:18 Infused .Q1H1M ONE Infusion Piperacillin Sod/Tazobactam 50 mls @ 100 mls/hr 05/29/25 08:20 05/29/25 09:56 Sod 3.375 gm/ Sodium Chloride IV 05/29/25 08:49 Infused ONCE ONE Infusion Dextrose/Lactated Ringer's 1,000 mls @ 125 mls/hr 05/29/25 09:30 05/29/25 16:33 D5lr IVCONT Infused .Q8H MERYL Infusion Iohexol 85 ml 05/29/25 05:24 05/29/25 05:26 Iohexol 350 Mg/Ml 100 Ml Infus..Btl IV 05/29/25 05:25 85 ml ONCE ONE Administration Ketorolac Tromethamine 15 mg 05/29/25 08:18 05/29/25 08:52 Ketorolac Tromethamine 15 Mg/Ml Vial IVPUSH 05/29/25 08:19 15 mg ONCE ONE Administration Morphine Sulfate 4 mg 05/29/25 04:44 05/29/25 04:53 Morphine Sulfate 4 Mg/Ml Cartridge IVPUSH 05/29/25 04:45 4 mg ONCE ONE Administration Protocol Sucralfate 1 gm 05/29/25 04:17 05/29/25 04:43 Sucralfate Oral Suspension 1 Gm/10 Ml Oral.Susp PO 05/29/25 04:18 1 gm ONCE ONE Administration Medical Decision Making Medical Decision Making MDM Narrative: 34-year-old female with a history of obesity, presents with upper abdominal discomfort x2 hours. Patient states she has had intermittent symptoms of upper abdominal discomfort for unclear duration of time. Overnight, they acutely worsen. The pain is severe, nonradiating, is worst epigastric and hypogastric region. Unable to describe the nature of her symptoms. Associated nausea at times. Denies postprandial pain or nausea. Denies fever or diarrhea. No chest pain no recent cough or cold symptoms. Problem: Obesity History: Per patient I have considered the following differential diagnoses: Biliary colic, cholecystitis, viral gastritis, GERD, pancreatitis Plan: Given distribution of pain in nature of symptoms, I am considering underlying biliary versus gastric versus pancreatic etiology as cause for symptoms. Her presentation is somewhat atypical for biliary colic or cholecystitis given no postprandial symptoms. She has no focal left upper quadrant pain, likely not pancreatitis. We will be screening basic labs including LFTs and lipase. Obtaining a CT scan given the severity of her discomfort. We will be giving morphine, Valium and Carafate. We will start IV fluid therapy. EKG obtained the patient was initially tachycardic on arrival, after treating her pain, her heart rate dropped to 79. Obtaining viral swabs, this could be viral gastritis. I have independently reviewed the following tests: Labs: Leukocytosis of 14.8 with left shift, not anemic, no electrolyte abnormalities, LFTs normal, lipase 19, less than 2, viral panel negative CT abdomen and pelvis: EKG: Normal sinus rhythm with sinus arrhythmia, rate of 79, no active ischemic changes, QTC 449 Differential Diagnosis Differential Diagnoses: The differential diagnosis associated with the presentation includes See medical decision-making Admission/Observation Consideration of admission/observation: Escalation of care including admission/observation considered Unclear at this time Lab Data MDM Lab Attestation statement: I reviewed the patient's lab results. 05/29/25 04:36 05/29/25 04:36 Labs: Lab Results 05/29/25 05/29/25 05/29/25 Range/Units 04:36 04:45 08:43 WBC 14.8 H (4.8-10.8) X10*3/uL RBC 4.29 (4.20-5.50) X10*6/uL Hgb 12.7 (12.0-16.0) g/dl Hct 38.7 (37.0-47.0) % MCV 90.2 (80.0-98.0) fL MCH 29.6 (27.0-33.0) pg MCHC 32.8 (31.0-35.0) g/dl RDW 13.0 (11.0-16.0) % Plt Count 317 (160-400) X10*3/uL MPV 9.7 (9.4-12.3) fL Immature Gran % (Auto) 0.3 (0.0-0.4) % Neut % (Auto) 77.2 H (45-73) % Lymph % (Auto) 16.3 L (20-40) % [place] % (Auto) 4.9 (2-11) % Eos % (Auto) 1.1 (0-4) % Baso % (Auto) 0.2 (0-2) % Lymph # (Auto) 2.4 (1.2-4.9) X10*3/uL [place] # (Auto) 0.7 (0.1-1.2) X10*3/uL Eos # (Auto) 0.2 (0.0-0.4) X10*3/uL Baso # (Auto) 0.0 (0.0-0.2) X10*3/uL Abs Immat Gran (auto) 0.04 H (0.00-0.03) X10*3/uL Absolute Neuts (auto) 11.4 H (2.0-8.3) x10*3/uL Absolute Nucleated RBC 0.000 (0.0-0.012) X10*3/uL Nucleated RBC % (auto) 0.0 (0.0-0.2) /100WBC Sodium 138 (135-145) mmol/L Potassium 3.4 (3.3-5.1) mmol/L Chloride 105 (96-108) mmol/L Carbon Dioxide 24 (22-29) mmol/L Anion Gap 12 (12-20) BUN 14 (9-16) mg/dL Creatinine 0.73 (0.5-1.4) mg/dL Estim Creat Clear Calc 136.5 Estimated GFR > 60 Random Glucose 99 (60-115) mg/dL Lactic Acid 1.2 (0.5-2.0) mmol/L Calcium 8.9 (8.4-10.2) mg/dL Magnesium 1.9 (1.6-2.6) mg/dL Total Bilirubin 0.3 (0.0-1.0) mg/dL AST 21 (5-31) U/L ALT 29 (0-31) U/L Alkaline Phosphatase 62 (39-117) U/L Total Protein 7.4 (6.5-8.0) g/dL Albumin 4.5 (3.5-5.0) g/dL Lipase 19 (8-78) U/L Beta HCG, Quant < 2 mIU/mL COVID-19 ([facility]AY) Negative (Negative) COVID-19 Clin Com See Note Influenza Type A (SONIA) Negative (Negative) Influenza Type B (SONIA) Negative (Negative) Influenza A & B Note See Note Critical Care Time Critical Care Time Critical Care Time: Yes Total Critical Care Time: 30 Attestation: Time is exclusive of separately billable procedures. Time includes: direct patient care, patient reassessment, coordination of patient care, interpretation of data (laboratory data, pulse oximetry, US), review of patient's medical records, medical consultation and documentation of patient care. Repeat IV pain medicines with improvement in pain Procedures excluded from critical care time: N/A I attest to this time spent taking care of the patient . Discharge Plan Discharge Clinical Impression: Epigastric abdominal pain, Acute cholecystitis Patient Disposition: Admitted As Inpatient Discharge Date/Time: 05/29/25 10:33
[2025-05-29] MEDS: iohexoL 350 MG/ML 100 ML INFUS..BTL 85 ML IV (05:26)
--- NOTE | 2025-05-29 08:44 | PM.HPGS ---
History of Present Illness History of Present Illness Date of Service: 05/29/25 Chief complaint: pain in the rib cage Narrative: Rosy Figueroa is a 34 year old female presenting with complaints of abdominal pain in the epigastrium right upper quadrant which began last evening and persisted throughout the night. She reports previous episodes of similar pain which resolved spontaneously. The current episode was far more severe and persistent. She subsequently presented to the emergency department and was noted to be tender in the epigastrium and right upper quadrant. Workup revealed elevated WBC of 14.8. A CT abdomen and pelvis revealed a minimally distended gallbladder with a gallstone noted at the neck of the gallbladder. This was confirmed by ultrasound with multiple gallstones within the gallbladder. No sonographic Jones sign was elicited. The patient's pain was initially 8/10 but currently is 0. She did receive pain medication in the emergency department. Review of Systems Review of Systems: Yes all other systems are reviewed and are negative PMFSH Social History Social History Alcohol intake: current Alcohol intake frequency: holidays/special occasions only Smoked in Last 30 Days: Yes Use of substances other than those prescribed or required for medical reasons: Yes Substance Use Type: Marijuana Advance Directives: No Advance Directives Information Provided: No Meds Allergies Allergy/AdvReac Type Severity Reaction Status Date / Time No Known Allergies (No Known Allergy Verified 05/29/25 04:15 Allergies*) Active Medications: Current Medications Lactated Ringer's (Lr) 1,000 mls @ 999 mls/hr IV .Q1H1M ONE Stop: 05/29/25 09:18 Piperacillin Sod/Tazobactam (Sod 3.375 gm/ Sodium Chloride) 50 mls @ 100 mls/hr IV ONCE ONE Stop: 05/29/25 08:49 Physical Exam Vital Signs: Vital Signs: Last Vital Signs Temp 98.0 F 05/29/25 07:42 Pulse 91 05/29/25 07:42 Resp 16 05/29/25 07:42 BP 101/62 05/29/25 07:42 Pulse Ox 97 05/29/25 07:42 O2 Del Method Room Air 05/29/25 07:42 BMI result Body Mass Index 42.9 Const: General: cooperative and no acute distress Nutritional Appearance: well nourished Orientation/consciousness: patient oriented x3 Limitations: no limitations HEENT: Head: Yes normocephalic and Yes atraumatic Ears: hearing grossly normal bilaterally Resp: Effort & Inspection: normal respiratory effort, no audible wheezes, no cough and no respiratory distress Cardio: Jugular venous distension: no JVD GI: Other: Negative Jones sign Inspection: Yes normal to inspection Palpation (GI): Soft to palpation, nontender, no guarding and not rigid Skin: Other: Warm, dry, no rash Neuro: General: patient oriented x3 Extrem: General: Yes no clubbing, cyanosis or edema Results Results Labs: Short CBC 05/29/25 Range/Units 04:36 WBC 14.8 H (4.8-10.8) X10*3/uL Hgb 12.7 (12.0-16.0) g/dl Hct 38.7 (37.0-47.0) % Plt Count 317 (160-400) X10*3/uL BMP 05/29/25 04:36 Sodium 138 Potassium 3.4 Chloride 105 Carbon Dioxide 24 BUN 14 Creatinine 0.73 Calcium 8.9 Liver Function 05/29/25 Range/Units 04:36 Total Bilirubin 0.3 (0.0-1.0) mg/dL AST 21 (5-31) U/L ALT 29 (0-31) U/L Alkaline Phosphatase 62 (39-117) U/L Albumin 4.5 (3.5-5.0) g/dL Assessment and Plan (1) Acute cholecystitis: Status: Acute Plan 34-year-old female patient presenting with complaints of epigastric and right upper quadrant abdominal pain found to have a gallstone at the neck of the gallbladder. Patient reports her abdominal pain is improved now but almost certainly her symptoms we will return. Discussed options of starting her back on diet and if she tolerates the diet, discharge to home with follow up in the office. However, if she so desires, she can be admitted and arrangements made for laparoscopic or possible open cholecystectomy. She expressed understanding we will think about her options. Quality Stroke Does the patient have a stroke diagnosis?: No VTE Prior VTE?: No VTE Risk Level:: Surgical - low VTE Device Contraindication: Treatment Not Indicated VTE Drug Contraindication: Treatment Not Indicated Procedures Date of Service Date of Service: 05/29/25
[2025-05-29] MEDS: Lactated Ringers 1,000 ML 999 ML IV (08:52)
--- NOTE | 2025-05-29 09:40 | HO.ANESPROP2 ---
Documented by User: Bee Williamson NP 05/29/25 09:41 HPI - Anesthesia Eval Consult details Narrative: 34 yr old female for Cholecystectomy Laparoscopic,possible open PMFSH Active Problems Active Problems: All Active Problems (Updated 05/29/25 @ 08:22 by Kasey Braun DO) Acute cholecystitis (Acute) Epigastric abdominal pain (Acute) Social History Social History Alcohol intake: current Alcohol intake frequency: holidays/special occasions only Patient Tobacco Use Status: Current everyday Tobacco user Tobacco use type: Cigarette Cigarettes Per Day: 3 Smoked in Last 30 Days: Yes e-Cigarette/Vaping Use: Currently Using Frequency of e-Cigarette/Vaping Use: daily Use of substances other than those prescribed or required for medical reasons: Yes Substance Use Type: Marijuana Substance Use Frequency: Daily Have you been hit, kicked, punched, or otherwise hurt by someone within the past year? If so, by whom?: No Are you DNR?: No Advance Directives: No Advance Directives Information Provided: No Patient : No Meds Allergies Allergy/AdvReac Type Severity Reaction Status Date / Time No Known Allergies (No Known Allergy Verified 05/29/25 04:15 Allergies*) Active Medications: Current Medications Hydromorphone HCl (Hydromorphone Hcl 0.5 Mg/0.5 Ml Syringe) 0.5 mg IVPUSH Q3H PRN; Protocol PRN Reason: Pain, Severe (Pain Scale 7-10) Acetaminophen (Ofirmev) 1,000 mg in 100 mls @ 400 mls/hr IV Q6H PRN PRN Reason: Pain, Mild (Pain Scale 1-3) Dextrose/Lactated Ringer's (D5lr) 1,000 mls @ 125 mls/hr IVCONT .Q8H MERYL Piperacillin Sod/Tazobactam (Sod 3.375 gm/ Sodium Chloride) 50 mls @ 100 mls/hr IV Q6H MERYL Ondansetron HCl (Ondansetron Hcl 4 Mg/2 Ml Vial) 4 mg IVPUSH QID PRN PRN Reason: Nausea Oxycodone HCl (Oxycodone Hcl Immed Release 5 Mg Tablet) 5 mg PO Q6H PRN PRN Reason: Pain, Moderate(Pain Scale 4-6) Zolpidem Tartrate (Zolpidem Tartrate 5 Mg Tablet) 5 mg PO BEDTIME PRN PRN Reason: Insomnia Home Medications ?Medication ?Instructions ?Recorded ?Confirmed ?Last Taken ?Type levonorgestrel-ethinyl estradiol 1 tab PO DAILY 05/29/25 05/29/25 05/28/25 History 0.1 mg-20 mcg tablet (Vienva) Exam Height,Weight and Vital Signs: Height 5 ft 4 in Weight 113.398 kg Last Vital Signs Temp 97.1 F 05/29/25 09:33 Pulse 89 05/29/25 09:33 Resp 18 05/29/25 09:33 BP 108/74 05/29/25 09:33 Pulse Ox 100 05/29/25 09:33 O2 Del Method Room Air 05/29/25 09:33 Pertinent Lab Results Pertinent Lab Results: Laboratory Tests 05/29/25 05/29/25 05/29/25 04:36 04:45 08:43 WBC 14.8 H RBC 4.29 Hgb 12.7 Hct 38.7 MCV 90.2 MCH 29.6 MCHC 32.8 RDW 13.0 Plt Count 317 MPV 9.7 Immature Gran % (Auto) 0.3 Neut % (Auto) 77.2 H Lymph % (Auto) 16.3 L [place] % (Auto) 4.9 Eos % (Auto) 1.1 Baso % (Auto) 0.2 Lymph # (Auto) 2.4 [place] # (Auto) 0.7 Eos # (Auto) 0.2 Baso # (Auto) 0.0 Abs Immat Gran (auto) 0.04 H Absolute Neuts (auto) 11.4 H Absolute Nucleated RBC 0.000 Nucleated RBC % (auto) 0.0 Sodium 138 Potassium 3.4 Chloride 105 Carbon Dioxide 24 Anion Gap 12 BUN 14 Creatinine 0.73 Estim Creat Clear Calc 136.5 Estimated GFR > 60 Random Glucose 99 Lactic Acid 1.2 Calcium 8.9 Magnesium 1.9 Total Bilirubin 0.3 AST 21 ALT 29 Alkaline Phosphatase 62 Total Protein 7.4 Albumin 4.5 Lipase 19 Beta HCG, Quant < 2 COVID-19 ([facility]AY) Negative COVID-19 Clin Com See Note Influenza Type A (SONIA) Negative Influenza Type B (SONIA) Negative Influenza A & B Note See Note Narrative Narrative: EKG 05/29/25 Vent. Rate : 79 BPM Atrial Rate : 79 BPM P-R Int : 148 ms QRS Dur : 80 ms QT Int : 392 ms P-R-T Axes : 52 10 38 degrees QTcB Int : 449 ms Normal sinus rhythm with sinus arrhythmia Cannot rule out Anterior infarct (cited on or before 12-Apr-2025) Abnormal ECG When compared with ECG of 12-Apr-2025 09:36, ST no longer depressed in Anterior leads Documented by User: Antonio Feldman MD 05/29/25 10:25 [facility] Past Medical History Functional capacity: independent ambulation Social History Social History Alcohol intake: current Alcohol intake frequency: holidays/special occasions only Patient Tobacco Use Status: Current everyday Tobacco user Tobacco use type: Cigarette Cigarettes Per Day: 3 Smoked in Last 30 Days: Yes e-Cigarette/Vaping Use: Currently Using Frequency of e-Cigarette/Vaping Use: daily Use of substances other than those prescribed or required for medical reasons: Yes Substance Use Type: Marijuana Substance Use Frequency: Daily Have you been hit, kicked, punched, or otherwise hurt by someone within the past year? If so, by whom?: No Are you DNR?: No Advance Directives: No Advance Directives Information Provided: No Patient : No Travel History History of recent travel: No Recent Travel in [facility] Within the Last 8 Weeks: No Meds Allergies Allergy/AdvReac Type Severity Reaction Status Date / Time No Known Allergies (No Known Allergy Verified 05/29/25 04:15 Allergies*) Home Medications ?Medication ?Instructions ?Recorded ?Confirmed ?Last Taken ?Type levonorgestrel-ethinyl estradiol 1 tab PO DAILY 05/29/25 05/29/25 05/28/25 History 0.1 mg-20 mcg tablet (Vienva)
[2025-05-29 09:59] LABS: Appearance Urine Cloudy; Glucose Urine UA Negative (Negative); PH 6.5 (5.0-9.0); Specific Gravity - Urine >= 1.030 (1.005-1.025); UMIC TRIGGER UACC YES
--- NOTE | 2025-05-29 10:03 | PHA.MEDREC ---
Addendum entered by Armond Arrieta PharmD 05/29/25 10:05: reviewed Original Note: Pharmacy Consult ? Medication Reconciliation Pharmacy has completed the medication reconciliation. Spoke with pt and she confirmed she is only taking Vienva control once daily and nothing else at this time; pt has control on hand.
[2025-05-29 10:12] LABS: UACC Culture Trigger YES
--- NOTE | 2025-05-29 10:18 | PC.NURSE ---
Patient has #20g IV to left AC. Dressing clean dry intact, IV flushes without difficulty.
--- NOTE | 2025-05-29 11:41 | P.OP_ITS ---
Operative Note Operative Note Date of Service: 05/29/25 Narrative: Preoperative diagnosis: Acute cholecystitis due to cholelithiasis Postoperative diagnosis: Same Procedure: Laparoscopic cholecystectomy Surgeon: Melvin Larson MD Clerical And Office Support Workers: Stephanie Alan PA-C; Anesthesia: General endotracheal Indications for procedure: 34-year-old female patient presenting with complaints of abdominal pain in the epigastrium and right upper quadrant found on workup to have a large gallstone noted at the neck of the gallbladder. Operative findings: Acute cholecystitis due to cholelithiasis, dense adhesions to the surrounding gallbladder wall consistent with prior episodes of acute cholecystitis Specimen: gallbladder Estimated blood loss: 5 mL Complications: None Procedure details: Patient was brought to the OR and placed in a supine position. After administering general anesthesia the patient's abdomen was prepped with ChloraPrep and draped in a sterile fashion. A surgical time-out was called the consent confirmed. Patient received preoperative antibiotics and Venodyne boots were in place. Local anesthesia consisting of 0.5% Sensorcaine without epinephrine was infiltrated in a periumbilical region. A 10 mm incision was made above the umbilicus in a transverse fashion. A 5 mm Kii Fios Optiview port was inserted under direct vision while instilling CO2 into the peritoneal cavity. The balloon was inflated and camera inserted to the abdominal cavity. A 12 mm trocar was then placed in the epigastrium. Two 5 mm trocars placed in the right upper quadrant by the assistant clinical director. The patient was placed in reverse Trendelenburg positioning and rotated to the left. The gallbladder was grasped with the fundus and retracted cephalad by the assistant clinical director. The infundibulum was then grasped and retracted away from the liver bed, also by the assistant clinical director. The Dolphin dissected was then used by the surgeon to dissect the peritoneum off the infundibulum to reveal the junction with the cystic duct. Cystic artery was noted slightly medial and posterior to the cystic duct. After obtaining a critical view the cystic duct was doubly clipped and divided. The cystic artery was then doubly clipped and divided. The gallbladder was then dissected off the liver bed using electrocautery with an L hook. Hemostasis was assured all times using the electrocautery. When the gallbladder is completely dissected off the liver bed was placed in an Endo-Catch bag and brought out through the epigastric incision. The gallbladder was sent to pathology for further examination. The abdomen was then re-examined. The liver bed was irrigated and suctioned dry. No bleeding or bile leak could be identified. CO2 was then evacuated and all trocars removed. Fascia was closed at the epigastric incision using a [id number] 0 Polysorb suture. Skin was closed in all incisions using a subcuticular 4 0 Polysorb suture by both the surgeon and assistant clinical director. Sterile dressings consisting of Steri-Strips, 2 x 2 gauze, and Tegaderm were then applied. The patient tolerated the procedure well. Sponge instrument and needle counts reported as correct. The patient was transferred to PACU in stable condition.
[2025-05-29] MEDS: Dextrose 5 % and Lactated Ring 1,000 ML 125 ML IVCONT (15:39)
[2025-05-30 03:46] VITALS: BP 111/64; PULSE 79; RESP 18; TEMP 36.6; O2SAT 99
--- NOTE | 2025-05-30 07:22 | PC.NURSE ---
Plan for discharge today after breakfast per DAPHNEY Alan. Patient reports pain is appropriately managed and is tolerating diet. Per DAPHNEY Brown- scheduled Zosyn to be held this morning.
--- NOTE | 2025-05-30 07:30 | PM.PNGS ---
Subjective Subjective Date of Service: 05/30/25 <Stephanie Alan PA-C - Last Filed: 05/30/25 07:37> 05/30/25 <Melvin Larson MD - Last Filed: 05/30/25 08:09> Interval history: Feels well. Tolerating solid diet. Was OOB and ambulating last night. Pain minimal at rest, sore with movement. Would like to go home. Discussed with patient that she was found to have tonsil hypertrophy during intubation. She is aware and has seen ENT in the past. She reports snoring at home. <Stephanie Alan PA-C - Last Filed: 05/30/25 07:37> Physical Exam Vital Signs: Vital Signs: Last Vital Signs Temp 97.8 F 05/30/25 03:46 Pulse 79 05/30/25 03:46 Resp 18 05/30/25 03:46 BP 111/64 05/30/25 03:46 Pulse Ox 99 05/30/25 03:46 O2 Del Method Room Air 05/30/25 03:46 O2 Flow Rate 2 05/29/25 14:00 BMI result Body Mass Index 42.5 <Stephanie Alan PA-C - Last Filed: 05/30/25 07:37> Const: General: comfortable, no acute distress and alert <ALEXA Mo Last Filed: 05/30/25 07:37> Orientation/consciousness: patient oriented x3 <Stephanie Alan PA-C - Last Filed: 05/30/25 07:37> Resp: Effort & Inspection: normal respiratory effort <Stephanie Alan PA-C - Last Filed: 05/30/25 07:37> GI: Inspection: Yes incision (dressings intact) <ALEXA Mo Last Filed: 05/30/25 07:37> Palpation (GI): Soft to palpation, Tenderness to palpation present (GI) (mild incisional), no guarding and not rigid <ALEXA Mo Last Filed: 05/30/25 07:37> Percussion: Yes normal to percussion <ALEXA Mo Last Filed: 05/30/25 07:37> Skin: General skin exam: no rashes or lesions noted <Stephanie Alan PA-C - Last Filed: 05/30/25 07:37> Neuro: General: patient oriented x3 and moves all extremities <Stephanie Alan PA-C - Last Filed: 05/30/25 07:37> Objective Data Active Medications Hydromorphone HCl (Hydromorphone Hcl 0.5 Mg/0.5 Ml Syringe) 0.5 mg IVPUSH Q3H PRN; Protocol PRN Reason: Pain, Severe (Pain Scale 7-10) Acetaminophen (Ofirmev) 1,000 mg in 100 mls @ 400 mls/hr IV Q6H PRN PRN Reason: Pain, Mild (Pain Scale 1-3) Last Infusion: 05/29/25 21:53 Dose: Infused Documented By: CHEO Piperacillin Sod/Tazobactam (Sod 3.375 gm/ Sodium Chloride) 50 mls @ 100 mls/hr IV Q6H [facility] Last Admin: 05/30/25 07:26 Dose: Not Given Documented By: ELLIE Non-Admin Reason: Physician Held Med Nicotine Polacrilex (Nicotine Polacrilex 2 Mg Gum) 2 mg BUCCAL Q2H PRN PRN Reason: Nicotine Cravings Pt Own ( Levonorgestrel- Ethinyl Estrad [ Vienva] 0.1-20 Mg- Mcg Tablet) 1 tab PO DAILY [facility] Ondansetron HCl (Ondansetron Hcl 4 Mg/2 Ml Vial) 4 mg IVPUSH QID PRN PRN Reason: Nausea Oxycodone HCl (Oxycodone Hcl Immed Release 5 Mg Tablet) 5 mg PO Q6H PRN PRN Reason: Pain, Moderate(Pain Scale 4-6) Zolpidem Tartrate (Zolpidem Tartrate 5 Mg Tablet) 5 mg PO BEDTIME PRN PRN Reason: Insomnia <Stephanie Alan PA-C - Last Filed: 05/30/25 07:37> Labs CBC & Chem 7: 05/29/25 04:36 05/29/25 04:36 <Stephanie Alan PA-C - Last Filed: 05/30/25 07:37> Labs: Laboratory Results - last 24 hr 05/29/25 05/29/25 08:43 09:44 Lactic Acid 1.2 Urine Color Yellow Urine Appearance Cloudy Urine pH 6.5 Ur Specific [place] >= 1.030 H Urine Protein Trace Urine Glucose (UA) Negative Urine Ketones Negative Urine Blood Small (1+) H Urine Nitrite Negative Ur Leukocyte Esterase Moderate (2+) H Urine RBC 3-5 H Urine WBC 0-5 Ur Squamous Epith Cells 11-20 Urine Bacteria 1+ Hyaline Casts 0-2 <Stephanie Alan PA-C - Last Filed: 05/30/25 07:37> Procedures Date of Service Date of Service: 05/30/25 <Stephanie Alan PA-C - Last Filed: 05/30/25 07:37> 05/30/25 <Melvin Larson MD - Last Filed: 05/30/25 08:09> Progress Note: A&P Assessment and plan (1) Acute cholecystitis: Status: Acute <Stephanie Alan PA-C - Last Filed: 05/30/25 07:37> (2) S/P laparoscopic cholecystectomy: Status: Acute <Stephanie Alan PA-C - Last Filed: 05/30/25 07:37> Assessment and Plan: POD #1 s/p lap willy. Doing well post op. VSS. Abd benign with appropriate post op tenderness, dressings intact. Feels ready for discharge to home. Dc to home today with f/u in the office in 1 week. Will refer to ENT for tonsil hypertrophy. <Stephanie Alan PA-C - Last Filed: 05/30/25 07:37> POD #1 s/p lap willy. Doing well post op. VSS. Abd benign with appropriate post op tenderness, dressings intact. Feels ready for discharge to home. Dc to home today with f/u in the office in 1 week. Will refer to ENT for tonsil hypertrophy. Patient reports some incisional pain but otherwise feels much improved. She tolerated her diet without nausea or vomiting and feels well enough to be discharged to home. She will follow up in the office in approximately 1 week. I encouraged her to avoid lifting greater than 10 lb for 2 weeks. She should also remain on a low-fat diet. <Melvin Larson MD - Last Filed: 05/30/25 08:09> Time Spent With Patient Time: Total time managing care of this patient today ____ minutes. <Stephanie Alan PA-C - Last Filed: 05/30/25 07:37> Quality Stroke Does the patient have a stroke diagnosis?: No <Stephanie Alan PA-C - Last Filed: 05/30/25 07:37> VTE Prior VTE?: No <Stephanie Alan PA-C - Last Filed: 05/30/25 07:37> VTE Risk Level:: Surgical - low <Stephanie Alan PA-C - Last Filed: 05/30/25 07:37> VTE Device Contraindication: Treatment Not Indicated <Stephanie Alan PA-C - Last Filed: 05/30/25 07:37> VTE Drug Contraindication: Treatment Not Indicated <Stephanie Alan PA-C - Last Filed: 05/30/25 07:37>
[2025-05-30 07:40] VITALS: BP 116/70; PULSE 90; RESP 18; TEMP 36.6; O2SAT 100
--- NOTE | 2025-05-30 07:49 | HO.POSTANES ---
Post Anesthesia Evaluation Post Anesthesia Evaluation Date of Service: 05/30/25 Vital Signs: Vital Signs Temp Pulse Resp BP Pulse Ox O2 Del Method 05/30/25 07:40 97.8 F 90 18 116/70 100 Room Air 05/30/25 03:46 97.8 F 79 18 111/64 99 Room Air 05/29/25 23:43 97.0 F 73 17 95/58 L 97 Room Air Anesthesia: General Mental Status: Awake Pain Control: Satisfactory Nausea/Vomiting: None Hydration: Adequate Anesthesia-Related Issues: No Anes. Related Issues
[2025-05-30] MEDS: LEVONORGESTREL ETHINYL ESTRAD 1 EACH PO (07:57)
--- NOTE | 2025-05-30 08:58 | MHC.CM.PN ---
DP: PT LEFT WITHOUT BEING SEEN BY CM.
--- NOTE | 2025-05-30 11:23 | P.CDIM_ITS ---
PROVIDER RESPONSE TEXT: To clarify, the appropriate diagnosis supported by the clinical indicators: Severe or Morbid Obesity Without alveolar hypoventilation QUERY TEXT: PHYSICIAN'S DOCUMENTATION REQUEST Date of Query: 05/30/2025 08:17 AM EST Patient Name: Rosy Figueroa Admit Date: 05/29/2025 Dear Melvin Larson MD, A review of the medical record indicates additional documentation may be needed. Please review below and update the documentation accordingly. Clinical Indicators: Height: ( ) 5'4 Weight: ( ) 112.2 kg BMI: ( ) 42.5 Other Clinical Notes Supporting Significance of the BMI: history of obesity If possible, please provide an associated diagnosis related to the abnormal BMI, such as: Overweight Obesity Due to other cause Specify the other cause Severe or Morbid Obesity With alveolar hypoventilation Severe or Morbid Obesity Without alveolar hypoventilation BMI is not significant Other (explain) Clinically unable to determine (explain) Thank you, Deepthi Coleman RN Use of terms such as suspected, likely, concern for, or probable (associated with a specific diagnosis that is being evaluated, monitored, or treated as if it exists) are acceptable and can be coded in the inpatient setting, when documented at the time of discharge. Please use your independent medical judgment in providing your response. THIS QUERY IS PART OF THE PERMANENT MEDICAL RECORD
--- NOTE | 2025-05-30 12:58 | PM.DS ---
DS: Providers Provider Date of Service: 05/30/25 Date of admission: 05/29/25 09:22 Date of discharge: 05/30/25 Primary care physician: Raghavendra Physician Attending physician on admission: Melvin Larson Attending physician on discharge: Melvin Larson DS: Diagnosis Discharge Diagnosis (1) Acute cholecystitis: Status: Acute (2) S/P laparoscopic cholecystectomy: Status: Acute DS: Summary Hospital Course Hospital Course: HPI AT ADMISSION: Rosy Figueroa is a 34 year old female presenting with complaints of abdominal pain in the epigastrium right upper quadrant which began last evening and persisted throughout the night. She reports previous episodes of similar pain which resolved spontaneously. The current episode was far more severe and persistent. She subsequently presented to the emergency department and was noted to be tender in the epigastrium and right upper quadrant. Workup revealed elevated WBC of 14.8. A CT abdomen and pelvis revealed a minimally distended gallbladder with a gallstone noted at the neck of the gallbladder. This was confirmed by ultrasound with multiple gallstones within the gallbladder. No sonographic Jones sign was elicited. The patient's pain was initially 8/10 but currently is 0. She did receive pain medication in the emergency department. It was discussed with her she had an impacted gallstone and her pain would likely return. She therefore elected to proceed with surgery. HOSPITAL COURSE: The patient was admitted to the surgical service for further treatment of the cholelithiasis, likely early acute cholecystitis. She elected to proceed with laparoscopic cholecystectomy, possible open. She was added onto the OR schedule for that day. On 05/29/25, a laparoscopic cholecystectomy was performed by Dr. Larson without complication. The patient tolerated the procedure well. She had an uncomplicated recovery course. On POD #1, she felt well and was tolerating a solid diet without nausea or vomiting, had good pain control and was ambulating without difficulty. She was hemodynamically stable. Her abdomen was benign with appropriate post op tenderness and clean and intact dressings. She felt ready for discharge. She was discharged to home on 05/30/25 in stable condition. She is to follow up in the office in 1 week. She was also noted to have tonsillar hypertrophy during intubate and she does endorse snoring. She was referred to ENT for follow up. Status at Discharge Functional status at discharge: independent ambulation Time Attestation Discharge Coordination Time (in mins): 25 Quality: Safe Use of Opioids Does Pt have an Active Cancer Diagnosis on the Problem List?: No Quality: Stroke Does the patient have a stroke diagnosis?: No Physical Exam Vital Signs: Vital Signs: Last Vital Signs Temp 97.8 F 05/30/25 07:40 Pulse 90 05/30/25 07:40 Resp 18 05/30/25 07:40 BP 116/70 05/30/25 07:40 Pulse Ox 100 05/30/25 07:40 O2 Del Method Room Air 05/30/25 07:40 O2 Flow Rate 2 05/29/25 14:00 BMI result Body Mass Index 42.5 Const: General: comfortable, no acute distress and alert Orientation/consciousness: patient oriented x3 Resp: Effort & Inspection: normal respiratory effort GI: Inspection: No distended and Yes incision (dressing clean and intact ) Palpation (GI): Soft to palpation, Tenderness to palpation present (GI) (mild incisional) and no guarding Skin: General skin exam: no rashes or lesions noted and no jaundice Neuro: General: patient oriented x3 DS: Data Data Completed and Pending Pending studies at discharge: Pending at discharge 05/29/25 11:15 Surgical [PTH] Routine Labs on day of discharge: Preliminary micro results at discharge 05/29/25 08:43 Blood Culture - Preliminary Blood - Venous No growth after 24 hours. 05/29/25 08:43 Blood Culture - Preliminary Blood - Venous No growth after 24 hours. Discharge Plan Discharge Anticipated Discharge Date/Time: 05/30/25 07:29 Patient Disposition: Home, Self-Care Discharge Diagnosis: acute cholecystitis, s/p laparoscopic cholecystectomy Referrals: [facility] [place] [facility] [place] [Provider Group] - 2 Weeks Melvin Larson MD [Physician, General Surgery] - 1 Week Raghavendra Mcfarlane [Primary Care Provider, Medical] - 1 Week Discharge Medications: New docusate sodium [Colace] 100 mg capsule 100 mg PO BID PRN (Reason: constipation) Qty: 30 0RF oxycodone 5 mg tablet 5 mg PO Q4H PRN (Reason: pain (scale score 7-10)) Qty: 24 0RF Rx Instructions: Partial Fill upon patient request. Continued levonorgestrel-ethinyl estrad [Vienva] 0.1-20 mg-mcg tablet 1 tab PO DAILY Discharge Orders: Discharge Order (Routine); Ordered 05/30/25 Ordered By: Stephanie Alan Diet: Low fat, low cholesterol Activity on Discharge: No heavy lifting Stand Alone Forms: Patient Portal Discharge page Print Language: Slovenian Activity Restrictions/Additional Instructions: If the incision area is tender, you may apply an ice pack for short intervals (No more than 20 minutes on, followed by at least 20 minutes off). Do not apply heat. Do not use creams, lotions, or topical antibiotics. Ok to shower. Remove clear dressings 3 days following your procedure. You have steri strips (small white strips) covering your incision- these will fall off ~1 week. No heavy lifting (>10lbs) or strenuous activity! Take Tylenol Extra-strength 1-2 tabs every 6 hours for the first day, then as needed. Oxycodone every 6-8 hours as needed for pain. Colace 100 mg every day as needed for constipation. Follow up in office with Dr. aLrson in 1-2 weeks. ([phone]) Call Your Doctor If: -Your temperature exceeds 101.5? F -You experience excessive pain or swelling -You have an unexpected reaction to medication -You have excessive bleeding -You experience continued vomiting/nausea -Your incision begins to separate -Your incision shows signs of infection such as increased redness, swelling, excessive pain, drainage (light blood or clear fluid is normal) or heat Care Plan Goals: Return to baseline health and resume normal activities following recovery period. Health Concerns: acute cholecystitis, cholelithiasis Tonsillar hypertrophy Plan of Treatment: s/p laparoscopic cholecystectomy Follow up in the office with Dr. Larson in 1 week. Pain control. Follow up with ENT regarding your enlarged tonsils. Assessment: Doing well post op. Patient Instructions: Laparoscopic Cholecystectomy (DC) Discharge Date/Time: 05/30/25 08:39
== END 2025-05-30 08:39 | disposition home or self-care (01) | DRG 263 ==
LOC: HO.ED 08:22 → HO.EDOVER 09:27 → HO.S3 12:38
PROVIDERS: Emergency Medicine; Physician Assistant Medical; Admitting Provider Surgery; Emergency Provider Emergency Medicine; Visit Provider Surgery
PROC: 0FT44ZZ Resection of Gallbladder, Percutaneous Endoscopic Approach (ICD-10-PCS; CPT 47562; principal; 2025-05-29 10:00)
DX: K80.00 Calculus of gallbladder with acute cholecystitis without obstruction (principal); E66.01 Morbid (severe) obesity due to excess calories; J35.1 Hypertrophy of tonsils; F17.210 Nicotine dependence, cigarettes, uncomplicated; Z71.3 Dietary counseling and surveillance; Z68.41 Body mass index [BMI] 40.0-44.9, adult; Z71.6 Tobacco abuse counseling; Z20.822 Contact with and (suspected) exposure to COVID-19; Z79.899 Other long term (current) drug therapy
CPT/HCPCS: 36415; 74177; 76705; 80053; 81001; 81003; 83605; 83690; 83735; 84702; 85025; 87040; 87086; 87502; 87635; 88304; 93005; 99285; J0131; J1100; J1171; J1885; J2003; J2250; J2270; J2405; J2543; J2704; J3010; J3360; J7120; Q9967

== ENCOUNTER → 2025-05-29 04:16 | Outpatient (BNV) | payer OTHER, SELFPAY | PROVIDERS: Admitting Provider Surgery; Emergency Provider Emergency Medicine; Visit Provider Internal Medicine Cardiovascular Disease | DX: I49.9 Cardiac arrhythmia, unspecified (principal) | CPT/HCPCS: 93010 ==

== ENCOUNTER → 2025-05-29 04:45 | Outpatient (BNV) | payer OTHER, SELFPAY | PROVIDERS: Emergency Provider Emergency Medicine; Visit Provider Radiology Vascular & Interventional Radiology | DX: Z03.89 Encounter for observation for other suspected diseases and conditions ruled out (principal) | CPT/HCPCS: 74177; 76705 ==

== ENCOUNTER → 2025-05-29 04:49 | Outpatient (BNV) | payer OTHER, SELFPAY | PROVIDERS: Emergency Provider Emergency Medicine; Visit Provider Surgery | DX: K81.0 Acute cholecystitis (principal); Z90.49 Acquired absence of other specified parts of digestive tract | CPT/HCPCS: 47562; 99024; 99222 ==

== ENCOUNTER 2025-06-05 09:32 | Outpatient (AMB) | payer OTHER, SELFPAY ==
--- NOTE | 2025-06-05 09:39 | A.OFFVIS_ITS ---
Vital Signs 06/05/25 09:47 Weight 229 lb BP 121/57 L Blood Pressure Location Rt brachial Position Sitting Pulse 89 Intake Visit Reasons: s/p lap willy Intake Note: Patient here s/p Laparoscopic cholecystectomy. Patient c/o: tenderness when changing positions from laying to sitting. Some bruising, Steri strips still in place. Reports incisions healing well. Denies oozing, bleeding. 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 She tolerated the procedure well. She had an uneventful postoperative course and was discharged to home the following day. She reports having increased incisional pain at home, relieved by oxycodone. Yesterday was her first day without it and she did not need anything for pain. She is tolerating a solid diet and moving her bowels normally. She did not need the colace. She has no concerns. [facility] Surgical History (Updated 06/02/25 @ 15:50 by ROSALBA Lam) S/P laparoscopic cholecystectomy (05/29/25) Social History Household Members: None Housing: Apartment Do you presently have visiting nurse or other home services: No Alcohol intake: current Alcohol intake frequency: holidays/special occasions only Patient Tobacco Use Status: Current everyday Tobacco user Tobacco use type: Cigarette Cigarettes Per Day: 2 e-Cigarette/Vaping Use: Currently Using Substance Use Type: Marijuana Review of Systems Const Denies chills and Denies fever(s) ENT Denies dizziness Card Denies chest pain and Denies dyspnea Resp Denies dyspnea GI Reports as per HPI Skin/Breast Denies erythema, Denies rash and Denies jaundice Neuro Denies dizziness Physical Exam Vital Signs: Last Vital Signs Pulse 89 06/05/25 09:47 BP 121/57 L 06/05/25 09:47 Const General: comfortable, no acute distress and alert Orientation/consciousness: patient oriented x3 Resp Effort & Inspection: normal respiratory effort GI Other: steris in place on incisions, removed uneventfully incisions well approximated, no erythema umbilical incision with some irritation surrounding the incision, no drainage, nontender abd soft Palpation (GI): no guarding Percussion: Yes normal to percussion Skin General skin exam: no rashes or lesions noted and no jaundice Neuro General: patient oriented x3 and moves all extremities Results Reviewed Results Reviewed: Gallbladder, cholecystectomy: Acute and chronic cholecystitis; cholelithiasis Assessment & Plan Assessment & Plan (1) S/P laparoscopic cholecystectomy: Onset Date: 05/29/25 Comment: Laparoscopic cholecystectomy Melvin Rodrigues Code(s): Z90.49 - Acquired absence of other specified parts of digestive tract Category: Surgical Plan 34 year old female s/p laparoscopic cholecystectomy on 05/29/25 for acute cholecystitis. She was discharged to home on 05/30/25. She tolerated the procedure well and has been doing fairly well since. Her abdomen is benign with well healed and clean incisions, no concern for infection. She is to continue no heavy lifting or strenuous activities for another 2 weeks. She can follow up as needed if she develops concerns. She was again reminded about her tonsillar hypertrophy and she will discuss further plan with her PCP. Medications: Discontinued oxycodone Partial Fill upon patient request. Discontinued Reason: Patient no longer taking 5 mg PO Q4H PRN 24 tabs 0RF pain (scale score 7-10) Coding Level of Care Code Global (82764) Diagnoses S/P laparoscopic cholecystectomy Z90.49
[2025-06-05 09:47] VITALS: BP 121/57; PULSE 89
== END 2025-06-05 10:17 | disposition home or self-care (01) ==
LOC: HO.HGS 09:32
PROVIDERS: PCP General Practice; Visit Provider Physician Assistant Surgical
DX: Z90.49 Acquired absence of other specified parts of digestive tract (principal)
CPT/HCPCS: 99024

== ENCOUNTER → 2025-06-05 09:32 | Outpatient (BNVA) | payer OTHER, SELFPAY | PROVIDERS: PCP General Practice; Visit Provider Physician Assistant Surgical | DX: Z98.890 Other specified postprocedural states (principal); Z90.49 Acquired absence of other specified parts of digestive tract | CPT/HCPCS: 99212 ==